=== PATIENT | male | born 1980 | race Two or more races ===

== ENCOUNTER 2019-07-28 11:59 | Outpatient (CLI) | payer OTHER | END 2019-07-28 12:15 | disposition home or self-care (01) | LOC: NUCLEAR 11:59 | DX: R10.13 Epigastric pain (principal) | CPT/HCPCS: 78227; A9537 ==

== ENCOUNTER 2020-03-24 09:00 | Outpatient (CLI) | payer OTHER | END 2020-03-24 15:00 | disposition home or self-care (01) | LOC: PPH VACUNA 09:00 | DX: Z23 Encounter for immunization (principal) ==

== ENCOUNTER 2020-11-29 09:47 | Outpatient (CLI) | payer OTHER | END 2020-11-29 10:38 | disposition home or self-care (01) | LOC: OFIC 805 09:47 | PROVIDERS: ATTEND Otolaryngology Otology & Neurotology | DX: H90.3 Sensorineural hearing loss, bilateral (principal) ==